=== PATIENT | male | born 1970 | race Caucasian/White ===

== ENCOUNTER 2018-03-06 18:13 | Emergency (ER) | payer OTHER ==
[~2018-03-06] VITALS: Ht 177.8 cm; Wt 217.7 kg
--- NOTE | ~2018-03-06 | EKG ---
[place] [address] [facility] [place] [address] ELECTROCARDIOGRAM REPORT Name: NATALI HERNANDEZ Room #: DEP Rahul#: [id number] Admission: 03/06/18 Attend Phys: Discharge: 03/06/18 Date of : 66 Report #: [id number] THIS REPORT FOR: //name// [facility] ED Test Date: 2018-03-06 Test Time: 18:20:47 Pat Name: NATALI HERNANDEZ Department: Room: Gender: District Plant Engineer: CIRILO : 1970 Requested By: Ángel Allison Order Number: [id number] MD: Cortez Infante Measurements Intervals [place] Rate: 85 P: 45 [place]: 156 QRS: -8 QRSD: 95 T: 67 QT: 393 QTc: 468 Interpretive Statements Sinus rhythm Abnormal R-wave progression, early transition No previous ECG available for comparison Electronically Signed On 03-07-2018 11:05:12 CDT by Cortez Infante [email or web address] <ELECTRONICALLY SIGNED> By: Cortez Infante MD 03/07/18 1105 1820 1820 Cortez Infante MD /EPI
[2018-03-06] MEDS ORDERED: COZAAR 25 MG TA25 M1 PO (18:28)
[2018-03-06] MEDS ORDERED: ASPIR 8181 MG PO (18:29)
[2018-03-06] MEDS ORDERED: LEXAPRO20 MG PO (18:29)
[2018-03-06] MEDS ORDERED: LIPITOR 20 MG T20 M1 PO (18:29)
[2018-03-06] MEDS ORDERED: UNICOMPLEX M TA1 TA1 PO (18:29)
[2018-03-06 18:34] LABS: ABSOLUTE NEUTROPHILS 6.2 thou/uL (1.4-8.2); BASOPHILS 1.4 % (0.0-2.0); EOSINOPHILS 2.4 % (0.0-3.0); HEMOGLOBIN 11.2 gm/dL (14.0-18.0); LYMPHOCYTES 16.8 % (24.0-44.0); MCV 77.9 fL (80.0-100.0); PLATELET COUNT 353 thou/uL (150-400); POLYS 71.4 % (36.0-66.0); RBC 4.49 mil/uL (4.50-6.00); RDW 17.4 % (10.5-14.5); WBC 8.7 thou/uL (4.0-11.0)
[2018-03-06 18:45] LABS: ANION GAP 11 mmol/L (7-16); BUN 21 mg/dL (7-18); CALCIUM 9.3 mg/dL (8.5-10.1); CHLORIDE 103 mmol/L (98-107); CO2 26 mmol/L (21-32); CREATININE 1.2 mg/dL (0.7-1.3); GLUCOSE 93 mg/dL (74-106); POTASSIUM 4.3 mmol/L (3.5-5.1); SODIUM 140 mmol/L (136-145)
[2018-03-06 18:54] LABS: TROPONIN-I <0.06 ng/mL (<0.06)
== END 2018-03-06 20:50 | disposition home or self-care (01) ==
LOC: ER 18:13
PROVIDERS: Emergency Medicine
DX: R07.9 Chest pain, unspecified (principal); I10 Essential (primary) hypertension; E78.5 Hyperlipidemia, unspecified; E11.9 Type 2 diabetes mellitus without complications; K21.9 Gastro-esophageal reflux disease without esophagitis; Z82.49 Family history of ischemic heart disease and other diseases of the circulatory system; Z88.8 Allergy status to other drugs, medicaments and biological substances

== ENCOUNTER 2020-04-04 01:57 | Emergency (ER) | payer MEDICARE, OTHER ==
[~2020-04-04] VITALS: Ht 177.8 cm; Wt 217.7 kg
[~2020-04-04 01:57] MED LIST: ASPIR 8181 MG PO; COZAAR 25 MG TA25 M1 PO; ELIQUIS5 MG PO; FAMOTIDINE 20 M20 MG PO; FOLIC ACID1 MG PO; FUROSEMIDE 20 M20 MG PO; ISORDIL10 MG PO; JANTOVEN7.5 MG PO; LEXAPRO20 MG PO; LIPITOR 20 MG T20 M1 PO; LOPRESSOR50 MG PO; PRINIVIL20 M1 PO; PRINIVIL20 MG PO; SEROQUEL 100 M100 M1 PO; SEROQUEL400 MG PO; TOPAMAX 25 MG T25 M1 PO; TORSEMIDE100 MG PO; UNICOMPLEX M TA1 TA1 PO; WELLBUTRIN XL300 MG PO
[2020-04-04] MEDS ORDERED: PROTONIX40 M4 PO (02:06)
[2020-04-04] MEDS ORDERED: LEXAPRO20 MG PO (02:07)
[2020-04-04] MEDS ORDERED: BRINTELLIX10 MG PO (02:07)
[2020-04-04] MEDS ORDERED: METFORMIN HCL500 M3 PO (02:07)
[2020-04-04] MEDS ORDERED: ENOXAPARIN60 MG/0.1 SUBQ (02:08)
[2020-04-04] MEDS ORDERED: ENOXAPARIN150 MG/1 M SUBQ (02:08)
[2020-04-04] MEDS ORDERED: SLOW FE142 MG PO (02:08)
[2020-04-04 02:46] LABS: BASOPHILS 1.2 % (0.0-2.0); EOSINOPHILS 3.8 % (0.0-3.0); HEMATOCRIT 33.1 % (42.0-52.0); HEMOGLOBIN 10.1 gm/dL (14.0-18.0); LYMPHOCYTES 19.4 % (24.0-44.0); MCHC 30.4 g/dL (28.0-37.0); MONOCYTES 9.5 % (1.0-8.0); PLATELET COUNT 312 thou/uL (150-400); POLYS 66.1 % (36.0-66.0); RBC 4.19 mil/uL (4.50-6.00); WBC 7.6 thou/uL (4.0-11.0)
[2020-04-04 02:47] LABS: CALCIUM 8.4 mg/dL (8.5-10.1); CREATININE 1.3 mg/dL (0.7-1.3); POTASSIUM 4.2 mmol/L (3.5-5.1)
[2020-04-04 02:54] LABS: ALBUMIN 3.1 g/dL (3.4-5.0); TOTAL BILIRUBIN 0.2 mg/dL (0.2-1.0); TOTAL PROTEIN 7.8 g/dL (6.4-8.2)
[2020-04-04 02:56] LABS: URINE BILIRUBIN NEGATIVE (Negative); URINE BLOOD NEGATIVE (Negative); URINE CLARITY CLEAR; URINE COLOR YELLOW; URINE GLUCOSE-RANDOM* NEGATIVE (Negative); URINE KETONES NEGATIVE (Negative); URINE LEUKOCYTES-REFLEX NEGATIVE (Negative); URINE NITRITE-REFLEX NEGATIVE (Negative); URINE PROTEIN (DIPSTICK) NEGATIVE (Negative); URINE UROBILINOGEN 0.2 E.U./dl (0.2-1.0)
[2020-04-04 04:06] LABS: INR 1.2
[2020-04-04 04:18] VITALS: BP 122/57
== END 2020-04-04 04:26 | disposition home or self-care (01) ==
LOC: ER 01:57
PROVIDERS: Emergency Medicine
DX: R10.32 Left lower quadrant pain (principal); R11.0 Nausea; E78.5 Hyperlipidemia, unspecified; E11.9 Type 2 diabetes mellitus without complications; K21.9 Gastro-esophageal reflux disease without esophagitis; I11.0 Hypertensive heart disease with heart failure; I50.9 Heart failure, unspecified; Z79.82 Long term (current) use of aspirin; Z79.01 Long term (current) use of anticoagulants; Z79.899 Other long term (current) drug therapy; Z88.8 Allergy status to other drugs, medicaments and biological substances

== ENCOUNTER 2020-05-31 00:42 | Observation (INO) | payer MEDICARE, OTHER ==
[~2020-05-31] VITALS: Ht 177.8 cm; Wt 224.1 kg
[2020-05-31] VITALS (9 sets, daily range): BP systolic 106–144; BP diastolic 44–73
[~2020-05-31 00:42] MED LIST changes: +BRINTELLIX10 MG PO; +ENOXAPARIN150 MG/1 M SUBQ; +ENOXAPARIN60 MG/0.1 SUBQ; +METFORMIN HCL500 M3 PO; +PROTONIX40 M4 PO; +PROTONIX40 MG PO; +SLOW FE142 MG PO
[2020-05-31 01:20] LABS: ABSOLUTE NEUTROPHILS 5.3 thou/uL (1.4-8.2); BASOPHILS 0.2 % (0.0-2.0); HEMATOCRIT 32.6 % (42.0-52.0); HEMOGLOBIN 9.9 gm/dL (14.0-18.0); LYMPHOCYTES 20.5 % (24.0-44.0); MCH 23.1 pg (26.0-34.0); MCHC 30.4 g/dL (28.0-37.0); PLATELET COUNT 377 thou/uL (150-400); POLYS 69.3 % (36.0-66.0); RBC 4.29 mil/uL (4.50-6.00); RDW 19.1 % (10.5-14.5); WBC 7.7 thou/uL (4.0-11.0)
[2020-05-31 01:22] LABS: ANION GAP 13 mmol/L (7-16); BUN 14 mg/dL (7-18); CALCIUM 8.9 mg/dL (8.5-10.1); CHLORIDE 100 mmol/L (98-107); CO2 23 mmol/L (21-32); CREATININE 1.4 mg/dL (0.7-1.3); GLUCOSE 120 mg/dL (74-106); POTASSIUM 4.1 mmol/L (3.5-5.1); SODIUM 136 mmol/L (136-145)
[2020-05-31 01:25] LABS: APTT 39.8 Seconds (24.5-32.8); INR 1.2; PROTIME 12.5 Seconds (9.3-11.4)
[2020-05-31 01:33] LABS: ALBUMIN 3.2 g/dL (3.4-5.0); DIRECT BILIRUBIN < 0.1 mg/dL (<0.1-0.2); LIPASE 92 U/L (73-393); MAGNESIUM 1.9 mg/dL (1.8-2.4); SGOT 17 U/L (15-37); SGPT 25 U/L (30-65); TOTAL BILIRUBIN 0.2 mg/dL (0.2-1.0); TOTAL PROTEIN 7.8 g/dL (6.4-8.2); TROPONIN-I <0.06 ng/mL (<0.06)
[2020-05-31 03:22] LABS: CHOLESTEROL 151 mg/dL (<200); HDL CHOLESTEROL 31 mg/dL (>40); LDL CHOLESTEROL 95 mg/dL (<100); SERUM ASSESSMENT Clear; TC:HDL 4.9 Ratio (Not establshd); TRIGLYCERIDE 127 mg/dL (<150); VLDL 25 mg/dL (<40)
--- NOTE | 2020-05-31 05:23 | NUR ---
PATIENT IS A NEW ADMISSION TO THE UNIT THIS SHIFT. HE ARRIVED VIA WHEELCHAIR AND WAS ABLE TO AMBULATE TO THE BED WITHOUT INCIDENT. PATIENT IS FULLY ALERT AND ORIENTED AND ABLE TO PARTICIPATE IN ADMISSION. NURSE TO COMPLETE ADMISSION AND INITIATE PLAN OF CARE.
--- NOTE | 2020-05-31 07:19 | EKG ---
[address] [place] [address] ELECTROCARDIOGRAM REPORT Name: NATALI HERNANDEZ V Room #: 209-P ADM IN M.R.#: [id number] Admission: 05/31/20 Attend Phys: Philomena Bhakta MD Discharge: Date of : 66 Report #: [id number] [facility] Test Date: 2020-05-31 Test Time: 06:36:30 Pat Name: NATALI HERNANDEZ Department: Room: 209 Gender: M Maxillofacial Surgeon: STACY PAINTING : 1970 Requested By: Isaias Scott Order Number: [id number] MD: Ahmet Tovar Measurements Intervals [place] Rate: 60 P: 63 [place]: 171 QRS: -5 QRSD: 102 T: 52 QT: 431 QTc: 431 Interpretive Statements Sinus rhythm Abnormal R-wave progression, early transition Compared to ECG 03/06/2018 18:20:47 No significant changes Electronically Signed On 05-31-2020 7:19:16 MILKER MACHINE by Ahmet Tovar [email or web address] <ELECTRONICALLY SIGNED> By: Ahmet Tovar MD, [facility] 05/31/20 0719 0636 0636 Ahmet Tovar MD, FACC /EPI
--- NOTE | 2020-05-31 07:45 | NUR ---
PATIENT DID COMPLAIN OF CHEST PAIN THIS MORNING. STAT EKG OBTAINED WITH SINUS RHYTHM NOTED. PATIENT WAS GIVEN NITRO TO GOOD AFFECT. FULL REPORT GIVEN TO ONCOMING NURSE.
[2020-05-31] MEDS ORDERED: LOVENOX150 MG/1 M SUBQ (07:48)
[2020-05-31] MEDS ORDERED: FUROSEMIDE 20 M20 MG PO (07:49)
--- NOTE | 2020-05-31 10:29 | 2DMMODE ---
[facility] [place] [address] 2 D/M-MODE ECHOCARDIOGRAM Name: NATALI HERNANDEZ V Room #: 209-P ADM IN M.R.#: [id number] Admission: 05/31/20 Attend Phys: Hammad Lindsay MD Discharge: Date of : 66 Report #: [id number] THIS REPORT FOR: cc: NO FAMILY PHYSICIAN or PCP NO FAMILY PHYSICIAN or PCP Ahmet Tovar MD [facility] ~ APPROVED REPORT Study performed: 05/31/2020 08:46:02 EXAM: Comprehensive 2D, Doppler, and color-flow Echocardiogram Patient Location: In-Patient Room #: 209 BSA: 3.06 HR: 88 bpm BP: 151/73 mmHg Other Information Study Quality: Adequate Risk Factors: Cardiac Risk Factors: Smoking, HTN, Hyperlipidemia Indications Hypertension/HDD 2D Dimensions IVSd: 17.09 (7-11mm) LVDd: 48.09 mm PWd: 10.70 (7-11mm) Ascending Ao: 31.78 (22-36mm) LVDs: 30.08 (25-40mm) Left Atrium: 44.99 (27-40mm) Aortic Root: 29.59 mm Biplane EF: 65.0 % Volumes Left Atrial Volume (Systole) Single Plane 4CH: 36.66 mL Single Plane 2CH: 38.93 mL Aortic Valve AoV Peak Joseph.: 1.73 m/s AO Peak Gr.: 12.04 mmHg LVOT Max P.61 mmHg [facility] [address] [place] [address] 2 D/M-MODE ECHOCARDIOGRAM Name: NATALI HERNANDEZ V Room #: 209-P [facility] IN .R.#: [id number] Admission: 05/31/20 Attend Phys: Hammad Lindsay MD Discharge: Date of : 66 Report #: [id number] LVOT Max V: 1.18 m/s Mitral Valve E/A Ratio: 0.9 MV Decel. Time: 1552.86 ms MV E Max Joseph.: 0.38 m/s MV A Joseph.: 0.40 m/s MV PHT: 450.33 ms IVRT: 83.04 ms Pulmonary Valve PV Peak Joseph.: 1.28 m/s PV Peak Gr.: 6.56 mmHg Pulmonary Vein P Vein S: 0.67 m/s P Vein A: 0.31 m/s P Vein D: 0.40 m/s P Vein A Dur.: 96.9 msec P Vein S/D Ratio: 1.67 Tricuspid Valve TR Peak Joseph.: 2.00 m/s RAP Estimate: 5.00 mmHg TR Peak Gr.: 15.98 mmHg RVSP: 21.00 mmHg Left Ventricle The left ventricle is normal size. Borderline concentric left ventricular hypertrophy. The left ventricular systolic function is normal. The left ventricular ejection fraction is within the normal range. LVEF is 65-70%. Right Ventricle The right ventricle is normal size. The right ventricular systolic function is normal. Atria The left atrium size is normal. The right atrium size is normal. Aortic Valve The aortic valve is normal in structure. No aortic regurgitation is present. There is no aortic valvular stenosis. Mitral Valve The mitral valve is normal in structure. Trace to mild mitral regurgitation. No evidence of mitral valve stenosis. Tricuspid Valve The tricuspid valve is normal in structure. Trace tricuspid [facility] [employer] [address] 2 D/M-MODE ECHOCARDIOGRAM Name: MARYNATALI Danelle Room #: 209-P [facility] IN .R.#: [id number] Admission: 05/31/20 Attend Phys: Hammad Lindsay MD Discharge: Date of : 66 Report #: [id number] regurgitation. Pulmonic Valve Pulmonic valve is not well visualized. There is no pulmonic valvular regurgitation. Great Vessels The aortic root is normal in size. IVC is normal in size and collapses >50% with inspiration. Pericardium There is no pericardial effusion. <Conclusion> Normal left ventricular size with borderline concentric hypertrophy Ejection fraction 60-65% Normal right ventricular size/function Normal atrial size Color-flow Doppler study was performed of the aortic/mitral/tricuspid/pulmonary valve Mild mitral valve insufficiency Trace tricuspid valve insufficiency, unable to assess PA systolic pressures No pericardial effusion <ELECTRONICALLY SIGNED> By: Ahmet Tovar MD, FACC 05/31/20 1029 1029 1029 Ahmet Tovar MD, [facility] /INF
[2020-06-01 02:06] LABS: GLYCOHEMOGLOBIN (HGB A1C) 6.1 % (4.8-5.6)
[2020-06-01 04:00] VITALS: BP 128/65
[2020-06-01 04:52] LABS: HEMATOCRIT 33.8 % (42.0-52.0); HEMOGLOBIN 10.2 gm/dL (14.0-18.0); MCH 23.2 pg (26.0-34.0); MCHC 30.2 g/dL (28.0-37.0); MCV 76.8 fL (80.0-100.0); RBC 4.41 mil/uL (4.50-6.00); RDW 19.4 % (10.5-14.5); WBC 7.1 thou/uL (4.0-11.0)
[2020-06-01 05:10] LABS: INR 1.2; PROTIME 12.7 Seconds (9.3-11.4)
[2020-06-01 05:14] LABS: ANION GAP 7 mmol/L (7-16); BUN 18 mg/dL (7-18); CALCIUM 9.5 mg/dL (8.5-10.1); CHLORIDE 101 mmol/L (98-107); CO2 28 mmol/L (21-32); CREATININE 1.3 mg/dL (0.7-1.3); GLUCOSE 80 mg/dL (74-106); POTASSIUM 4.4 mmol/L (3.5-5.1); SODIUM 136 mmol/L (136-145); TROPONIN-I <0.06 ng/mL (<0.06)
[2020-06-01 07:14] VITALS: BP 125/70
--- NOTE | 2020-06-01 07:15 | EKG ---
[address] [address] ELECTROCARDIOGRAM REPORT Name: NATALI HERNANDEZ V Room #: 209-P ADM IN M.R.#: [id number] Admission: 05/31/20 Attend Phys: Hammad Lindsay MD Discharge: Date of : 66 Report #: [id number] [facility] ED Test Date: 2020-05-31 Test Time: 00:54:34 Pat Name: NATALI HERNANDEZ Department: Room: 209 P Gender: M Vp Of Technology: [place] : 1970 Requested By: Hammad Lindsay Order Number: [id number] : Ahmet Tovar Measurements Intervals [place] Rate: 76 P: [place]: QRS: -9 QRSD: 90 T: 38 QT: 402 QTc: 453 Interpretive Statements NSR Compared to ECG 03/06/2018 18:20:47 No significant change Electronically Signed On 06-01-2020 7:15:12 DIRECTOR SALES by Ahmet Tovar [email or web address] <ELECTRONICALLY SIGNED> By: Ahmet Tovar MD, [facility] 06/01/20 0715 0054 0054 Ahmet Tovar MD, FACC /EPI
[2020-06-01] MEDS ORDERED: METOPROLOL SUCC50 MG PO (09:39)
[2020-06-01 11:20] VITALS: BP 116/63
[2020-06-01 12:12] VITALS: BP 116/63
--- NOTE | 2020-06-01 12:13 | NUR ---
Pt here observation due to chest pain. DC home today with outpt f/u. Studio Technician Video Operator visited with the pt at bedside. He is a&ox4 and indicates he lives in an apt with family. No steps. He has a st cane for balance. He is considering f/u for barriatric surgery consult d/t >600lbs. Pt seen and cleared by therapy. Pt notes depression about his condition. Mental health/counseling options discussed. Pt to address with his pcp. He has been provided a cab ride (voucher) to facilitate dc home today. He has his keys and feels safe getting in and out of cab and into his apt. No cm interventions indicated.
[2020-06-01 14:33] VITALS: BP 131/73
[2020-06-01 15:32] VITALS: BP 116/63
--- NOTE | 2020-06-01 17:13 | NUR ---
ASSUMED CARE OF PT AT SHIFT CHANGE. ASSESSMENTS CHARTED. MEDS GIVEN PER JUL. PT A&OX4, C/O PAIN NOT TREATED D/T DR. GUTIERREZ, PT EXPRESSED UNDERSTANDING. DISCHARGE ORDERS AND INSTRUCTIONS COMPLETE. IV AND TELE DC'D. THIS NURSE TRANSPORTED PT WITH CAB VOUCHER VIA WHEELCHAIR TO ER ENTRANCE.
== END 2020-06-01 16:36 | disposition home or self-care (01) ==
LOC: ER 00:42 → 2N 02:19 → EROBS 02:19 → 2N 03:58
PROVIDERS: Emergency Medicine; Nurse Practitioner Family; ADMIT Hospitalist; ATTEND Hospitalist
DX: R07.2 Precordial pain (principal); I50.30 Unspecified diastolic (congestive) heart failure; E78.5 Hyperlipidemia, unspecified; E11.9 Type 2 diabetes mellitus without complications; K21.9 Gastro-esophageal reflux disease without esophagitis; F41.9 Anxiety disorder, unspecified; I74.8 Embolism and thrombosis of other arteries; F32.9 Major depressive disorder, single episode, unspecified; E66.01 Morbid (severe) obesity due to excess calories; D64.9 Anemia, unspecified; I11.0 Hypertensive heart disease with heart failure; Z86.711 Personal history of pulmonary embolism; Z79.01 Long term (current) use of anticoagulants; Z87.891 Personal history of nicotine dependence
CPT/HCPCS: 10081

== ENCOUNTER 2020-06-12 04:22 | Observation (INO) | payer MEDICARE, OTHER ==
[~2020-06-12] VITALS: Ht 177.8 cm; Wt 217.7 kg
[~2020-06-12 04:22] MED LIST changes: +LOVENOX150 MG/1 M SUBQ; +METOPROLOL SUCC50 MG PO
[2020-06-12 04:24] VITALS: BP 176/72
[2020-06-12 04:53] LABS: EOSINOPHILS 0.7 % (0.0-3.0); HEMATOCRIT 35.6 % (42.0-52.0); LYMPHOCYTES 18.2 % (24.0-44.0); MCH 23.5 pg (26.0-34.0); MCHC 30.8 g/dL (28.0-37.0); MCV 76.1 fL (80.0-100.0); MONOCYTES 6.8 % (1.0-8.0); PLATELET COUNT 405 thou/uL (150-400); POLYS 73.3 % (36.0-66.0); RBC 4.67 mil/uL (4.50-6.00); RDW 20.4 % (10.5-14.5); WBC 8.2 thou/uL (4.0-11.0)
[2020-06-12 04:57] LABS: ANION GAP 13 mmol/L (7-16); BUN 28 mg/dL (7-18); CALCIUM 8.6 mg/dL (8.5-10.1); CHLORIDE 101 mmol/L (98-107); CO2 23 mmol/L (21-32); CREATININE 1.4 mg/dL (0.7-1.3); GLUCOSE 102 mg/dL (74-106); POTASSIUM 3.9 mmol/L (3.5-5.1); SODIUM 137 mmol/L (136-145)
[2020-06-12 05:05] LABS: TROPONIN-I <0.06 ng/mL (<0.06)
[2020-06-12 05:10] LABS: D-DIMER 0.23 ug/mLFEU (0.19-0.50); INR 1.4
[2020-06-12 08:00] VITALS: BP 152/86
[2020-06-12] MEDS ORDERED: LIPITOR 20 MG T20 M1 PO ×2 (08:09→12:03)
[2020-06-12] MEDS ORDERED: METOPROLOL SUCC50 MG PO ×2 (08:09→12:03)
[2020-06-12] MEDS ORDERED: LOVENOX150 MG/1 M SUBQ ×2 (08:09→12:03)
[2020-06-12] MEDS ORDERED: ISORDIL10 MG PO ×2 (08:09→12:03)
[2020-06-12] MEDS ORDERED: FUROSEMIDE 20 M20 MG PO ×2 (08:09→12:03)
[2020-06-12] MEDS ORDERED: JANTOVEN7.5 MG PO ×2 (08:09→12:03)
[2020-06-12 12:00] VITALS: BP 162/85
[2020-06-12] MEDS ORDERED: TOPAMAX 25 MG T25 M1 PO (12:03)
[2020-06-12] MEDS ORDERED: SEROQUEL400 MG PO (12:03)
[2020-06-12] MEDS ORDERED: WELLBUTRIN XL300 MG PO (12:03)
--- NOTE | 2020-06-12 16:05 | EKG ---
[place] [address] [facility] [place] [address] ELECTROCARDIOGRAM REPORT Name: NATALI HERNANDEZ V Room #: 170-9 [facility]..#: [id number] Admission: 06/12/20 Attend Phys: Cassnadra Costa MD Discharge: Date of : 66 Report #: [id number] [facility] ED Test Date: 2020-06-12 Test Time: 04:26:58 Pat Name: NATALI HERNANDEZ Department: Room: 170 Gender: M Ambulatory Services Representative: JCHAIHUDSON : 1970 Requested By: Roma Langston Order Number: [id number] MD: Santy Dawson Measurements Intervals [place] Rate: 92 P: 49 [place]: 159 QRS: -6 QRSD: 101 T: 52 QT: 364 QTc: 451 Interpretive Statements Sinus rhythm Early R wave progression Compared to ECG 05/31/2020 06:36:30 No significant change was found Electronically Signed On 06-12-2020 16:05:24 LINE CONSTRUCTION SUPERVISOR by Santy Dawson [email or web address] <ELECTRONICALLY SIGNED> By: Santy Dawson MD, [facility] 06/12/20 1605 0426 0426 Santy Dawson MD, FACC /EPI
[2020-06-12] MEDS ORDERED: GLYBURIDE 2.52.5 M1 PO (17:11)
[2020-06-12 17:23] VITALS: BP 162/85
[2020-06-12 17:30] VITALS: BP 154/89
== END 2020-06-12 18:30 | disposition home or self-care (01) ==
LOC: ER 04:22 → EROBS 05:47
PROVIDERS: Emergency Medicine; Nurse Practitioner; ADMIT Internal Medicine; ATTEND Internal Medicine
DX: R07.89 Other chest pain (principal); I11.0 Hypertensive heart disease with heart failure; I50.9 Heart failure, unspecified; E11.9 Type 2 diabetes mellitus without complications; D63.8 Anemia in other chronic diseases classified elsewhere; E78.5 Hyperlipidemia, unspecified; E66.01 Morbid (severe) obesity due to excess calories; F41.9 Anxiety disorder, unspecified; F32.9 Major depressive disorder, single episode, unspecified; K21.9 Gastro-esophageal reflux disease without esophagitis; Z79.82 Long term (current) use of aspirin; Z87.891 Personal history of nicotine dependence

== ENCOUNTER 2020-06-20 15:35 | Emergency (ER) | payer MEDICARE, OTHER ==
[~2020-06-20] VITALS: Ht 170.2 cm; Wt 221.8 kg
[~2020-06-20 15:35] MED LIST changes: +GLYBURIDE 2.52.5 M1 PO
[2020-06-20 16:05] LABS: ABSOLUTE NEUTROPHILS 5.5 thou/uL (1.4-8.2); BASOPHILS 0.9 % (0.0-2.0); EOSINOPHILS 2.3 % (0.0-3.0); HEMATOCRIT 34.1 % (42.0-52.0); HEMOGLOBIN 10.1 gm/dL (14.0-18.0); LYMPHOCYTES 14.1 % (24.0-44.0); MCH 22.4 pg (26.0-34.0); MCHC 29.5 g/dL (28.0-37.0); MONOCYTES 7.4 % (1.0-8.0); PLATELET COUNT 338 thou/uL (150-400); POLYS 75.3 % (36.0-66.0); RBC 4.49 mil/uL (4.50-6.00); RDW 20.5 % (10.5-14.5); WBC 7.3 thou/uL (4.0-11.0)
[2020-06-20 16:10] LABS: ANION GAP 12 mmol/L (7-16); BUN 13 mg/dL (7-18); CALCIUM 8.7 mg/dL (8.5-10.1); CHLORIDE 102 mmol/L (98-107); CO2 23 mmol/L (21-32); CREATININE 1.5 mg/dL (0.7-1.3); GLUCOSE 153 mg/dL (74-106); POTASSIUM 4.3 mmol/L (3.5-5.1); SODIUM 137 mmol/L (136-145)
[2020-06-20 16:20] LABS: ALBUMIN 3.4 g/dL (3.4-5.0); LIPASE 80 U/L (73-393); SGOT 25 U/L (15-37); SGPT 37 U/L (30-65); TOTAL BILIRUBIN 0.2 mg/dL (0.2-1.0); TOTAL PROTEIN 7.7 g/dL (6.4-8.2); TROPONIN-I <0.06 ng/mL (<0.06)
[2020-06-20 16:24] LABS: INR 1.9; PROTIME 19.9 Seconds (9.3-11.4)
[2020-06-20 19:23] VITALS: BP 131/60
[2020-06-20 20:03] LABS: ANISOCYTOSIS 2+; HYPOCHROMASIA 2+; POLYCHROMASIA 1+
--- NOTE | 2020-06-21 07:05 | EKG ---
[facility] [place] [address] ELECTROCARDIOGRAM REPORT Name: NATALI HERNANDEZ V [facility] [place] [id number] Admission: 06/20/20 Attend Phys: Discharge: 06/20/20 Date of : 66 Report #: [id number] [facility] ED Test Date: 2020-06-20 Test Time: 15:44:05 Pat Name: NATALI HERNANDEZ Department: Room: Gender: M Rounding Machine Operator: karon : 1970 Requested By: Marvin Calloway Order Number: [id number] MD: Ahmet Tovar Measurements Intervals [place] Rate: 65 P: 43 [place]: 166 QRS: -6 QRSD: 102 T: 39 QT: 381 QTc: 397 Interpretive Statements Sinus rhythm Low voltage, precordial leads Compared to ECG 06/12/2020 04:26:58 Low QRS voltage now present Poor R-wave progression no longer present Electronically Signed On 06-21-2020 7:04:51 FIBERGLASS ROLLER by Ahmet Tovar [email or web address] <ELECTRONICALLY SIGNED> By: Ahmet Tovar MD, [facility] 06/21/20 0704 1544 1544 Ahmet Tovar MD, FACC /EPI
--- NOTE | 2020-06-21 07:05 | EKG ---
[place] [address] [place] [address] ELECTROCARDIOGRAM REPORT Name: NATALI HERNANDEZ V Room #: [facility]#: [id number] Admission: 06/20/20 Attend Phys: Discharge: 06/20/20 Date of : 66 Report #: [id number] [facility] ED Test Date: 2020-06-20 Test Time: 17:29:37 Pat Name: NATALI HERNANDEZ Department: Room: Gender: M Advertising Sales Manager: ANA : 1970 Requested By: Marvin Calloway Order Number: [id number] MD: Ahmet Tovar Measurements Intervals [place] Rate: 76 P: 55 [place]: 170 QRS: -16 QRSD: 112 T: 32 QT: 388 QTc: 437 Interpretive Statements Sinus rhythm Borderline intraventricular conduction delay Low voltage, precordial leads Baseline wander in lead(s) V1 Compared to ECG 06/20/2020 15:44:05 No significant changes Electronically Signed On 06-21-2020 7:04:53 FOOD CHECKERS AND CASHIERS SUPERVISOR by Ahmet Tovar [email or web address] <ELECTRONICALLY SIGNED> By: Ahmet Tovar MD, [facility] 06/21/20 0704 D: [id number] 28 Ahmet Tovar MD, FACC /EPI
== END 2020-06-20 19:23 | disposition home or self-care (01) ==
LOC: ER 15:35
PROVIDERS: Emergency Medicine
DX: R07.89 Other chest pain (principal); E11.9 Type 2 diabetes mellitus without complications; E78.5 Hyperlipidemia, unspecified; K21.9 Gastro-esophageal reflux disease without esophagitis; I11.0 Hypertensive heart disease with heart failure; I50.9 Heart failure, unspecified; Z87.891 Personal history of nicotine dependence; Z86.2 Personal history of diseases of the blood and blood-forming organs and certain disorders involving the immune mechanism; Z79.02 Long term (current) use of antithrombotics/antiplatelets; Z79.899 Other long term (current) drug therapy; Z88.8 Allergy status to other drugs, medicaments and biological substances

== ENCOUNTER 2020-08-28 22:38 | Emergency (ER) | payer MEDICARE, OTHER ==
[~2020-08-28] VITALS: Ht 177.8 cm; Wt 217.7 kg
[2020-08-28 23:04] LABS: ABSOLUTE NEUTROPHILS 5.3 thou/uL (1.4-8.2); BASOPHILS 1.2 % (0.0-2.0); EOSINOPHILS 4.1 % (0.0-3.0); HEMATOCRIT 34.5 % (42.0-52.0); HEMOGLOBIN 10.9 gm/dL (14.0-18.0); LYMPHOCYTES 16.9 % (24.0-44.0); MCHC 31.7 g/dL (28.0-37.0); MCV 75.8 fL (80.0-100.0); MONOCYTES 7.2 % (1.0-8.0); PLATELET COUNT 323 thou/uL (150-400); POLYS 70.6 % (36.0-66.0); RBC 4.56 mil/uL (4.50-6.00); RDW 21.2 % (10.5-14.5); WBC 7.4 thou/uL (4.0-11.0)
[2020-08-28 23:18] LABS: ANION GAP 11 mmol/L (7-16); BUN 17 mg/dL (7-18); CALCIUM 8.6 mg/dL (8.5-10.1); CHLORIDE 105 mmol/L (98-107); CO2 24 mmol/L (21-32); CREATININE 1.4 mg/dL (0.7-1.3); GLUCOSE 104 mg/dL (74-106); POTASSIUM 4.2 mmol/L (3.5-5.1); SODIUM 140 mmol/L (136-145)
[2020-08-28 23:32] LABS: SGOT 24 U/L (15-37); SGPT 35 U/L (16-63); TOTAL BILIRUBIN 0.3 mg/dL (0.2-1.0); TOTAL PROTEIN 7.7 g/dL (6.4-8.2); TROPONIN-I <0.06 ng/mL (<0.06)
[2020-08-29 01:23] VITALS: BP 127/55
--- NOTE | 2020-08-29 16:01 | EKG ---
[place] [address] [employer] [place] [address] ELECTROCARDIOGRAM REPORT Name: NATALI HERNANDEZ V [id number] Admission: 08/28/20 Attend Phys: Discharge: 08/29/20 Date of : 66 Report #: [id number] [facility] ED Test Date: 2020-08-28 Test Time: 22:48:25 Pat Name: NATALI HERNANDEZ Department: Room: Gender: M Diversified Crops Farmworker: donta santa : 1970 Requested By: Kathya Diez Order Number: [id number] MD: Santy Dawson Measurements Intervals [place] Rate: 59 P: 41 [place]: 164 QRS: -7 QRSD: 102 T: 35 QT: 412 QTc: 409 Interpretive Statements Sinus bradycardia Otherwise normal tracing Compared to ECG 06/20/2020 17:29:37 No significant changes Electronically Signed On 08-29-2020 16:01:47 CDT by Santy Dawson [email or web address] <ELECTRONICALLY SIGNED> By: Santy Dawson MD, [facility] 08/29/20 1601 2248 2248 Santy Dawson MD, FACC /EPI
== END 2020-08-29 04:35 | disposition home or self-care (01) ==
LOC: ER 22:38
PROVIDERS: Emergency Medicine
DX: R07.9 Chest pain, unspecified (principal); I11.0 Hypertensive heart disease with heart failure; I50.9 Heart failure, unspecified; K21.9 Gastro-esophageal reflux disease without esophagitis; E11.9 Type 2 diabetes mellitus without complications; E78.5 Hyperlipidemia, unspecified; Z86.2 Personal history of diseases of the blood and blood-forming organs and certain disorders involving the immune mechanism; Z79.82 Long term (current) use of aspirin; Z79.899 Other long term (current) drug therapy; Z87.891 Personal history of nicotine dependence; Z88.8 Allergy status to other drugs, medicaments and biological substances

== ENCOUNTER 2020-09-02 19:20 | Emergency (ER) | payer OTHER ==
[~2020-09-02] VITALS: Ht 177.8 cm; Wt 233.6 kg
--- NOTE | ~2020-09-02 | EMS ---
[address] [address] EMS Patient Care Report Name: NATALI HERNANDEZ V Room #: REG [place] Kay#: [id number] Admission: 09/02/20 Attend Phys: Discharge: Date of : 66 Report #: [id number] THIS REPORT FOR: //name// Report Transmitted: 09/02/2020 21:04 EMS Care Summary [place], [place]/[facility] Incident [id number] @ 09/02/2020 18:47 Incident Location [address] Patient DEN HERNANDEZ Male, 49 Years 1970 Patient Address [address] [place] [address] Patient History Other,Congestive Heart Failure (CHF),Chronic Obstructive Pulmonary Disease (COPD),Hypertension (HTN),Hyperlipidemia,Gastro-Esophageal Reflux Disease (GERD),Morbid Obesity,Depression,Anxiety,Post Traumatic Stress Disorder (PTSD),Hernia (Abdominal),None Reported,Appendectomy, Patient Allergies Other drug allergy,Toradol, Patient Medications Metformin, Lexapro, None Reported, Seroquel, Furosemide, Wellbutrin, Atorvastatin, Warfarin, Topamax, Folic acid, Lovenox, Metoprolol, Isosorbide, Chief Complaint CHEST PAIN Disposition Transported No Lights/[place] Dispatch Reason Chest Pain (Non-Traumatic) Transported To [facility] Narrative M528 ARRIVES TO FIND 49 Y/O M PT COMPLAINING OF CHEST PAIN. [address] [address] EMS Patient Care Report Name: NATALI HERNANDEZ V Room #: REG [facility].#: [id number] Admission: 09/02/20 Attend Phys: Discharge: Date of : 66 Report #: [id number] ASSESSMENTS AND TREATMENTS NOTED. PT AMBULATORY AND WALKS TO COT. PT MOVED TO AMBULANCE. PT TRANSPORTED. M528 ARRIVES AT DESTINATION. PT MOVED TO ROOM IN ED. PT SLIDES FROM COT TO BED IN ROOM. PT CRAE TRANSFERRED. M528 RETURNS TO SERVICE. Initial Vitals @19:08P: 70,BP: 103/50,CO: 1,SpO2: 97, @18:59P: 71,R: 18,BP: 107/64,Pain: 10/10,GCS: 15,Glucose: 171,Revised Trauma: 12, Assessments @18:58MENTAL:No Abnormalities,SKIN:No Abnormalities,HEENT:Head/Face: No Abnormalities,Eyes: No Abnormalities,Neck/Airway: No Abnormalities,LUNG SOUNDS:General: No Abnormalities,Left Upper: No Abnormalities,Right Upper: No Abnormalities,Left Lower: No Abnormalities,Right Lower: No Abnormalities,ABDOMEN:General: No Abnormalities,Left Upper: No Abnormalities,Right Upper: No Abnormalities,Left Lower: No Abnormalities,Right Lower: No Abnormalities,PELVIS//GI:No Abnormalities,EXTREMITIES:Left Arm: No Abnormalities,Right Arm: No Abnormalities,Left Leg: No Abnormalities,Right Leg: No Abnormalities,PULSE:NEURO:No Abnormalities,@19:03MENTAL:No Abnormalities,SKIN:No Abnormalities,HEENT:Head/Face: No Abnormalities,Eyes: No Abnormalities,Neck/Airway: No Abnormalities,LUNG SOUNDS:General: No Abnormalities,Left Upper: No Abnormalities,Right Upper: No Abnormalities,Left Lower: No Abnormalities,Right Lower: No Abnormalities,ABDOMEN:General: No Abnormalities,Left Upper: No Abnormalities,Right Upper: No Abnormalities,Left Lower: No Abnormalities,Right Lower: No Abnormalities,PELVIS//GI:No Abnormalities,EXTREMITIES:Left Arm: No Abnormalities,Right Arm: No Abnormalities,Left Leg: No Abnormalities,Right Leg: No Abnormalities,PULSE:NEURO:No Abnormalities, Impression Chest Pain / Discomfort Procedures @19:0412-Lead ECGResponse: UnchangedSucceeded@18:58ALS AssessmentResponse: UnchangedSucceeded@19:03Saline Lock 0cc (18 ga) Site: Antecubital-LeftResponse: UnchangedSucceeded@19:00Aspirin - 324 Milligrams (mg) - OralResponse: Unchanged@PTANitrostat - 0.4 Milligrams (mg) - SublingualResponse: Unchanged@PTANitrostat - 0.4 Milligrams (mg) - SublingualResponse: Unchanged@PTANitrostat - 0.4 Milligrams (mg) - SublingualResponse: Unchanged Timeline CRM ANALYST,Nitrostat - 0.4 Milligrams (mg) - Sublingual,Response: Unchanged CRM ANALYST,Nitrostat - 0.4 Milligrams (mg) - Sublingual,Response: Unchanged CRM ANALYST,Nitrostat - 0.4 Milligrams (mg) - Sublingual,Response: Unchanged 18:44,Call Received [facility] [address] [place] [address] EMS Patient Care Report Name: NATALI HERNANDEZ V Room #: REG Rahul#: [id number] Admission: 09/02/20 Attend Phys: Discharge: Date of : 66 Report #: [id number] 18:44,Dispatch Notified 18:47,Dispatched 18:48,En Route 18:56,On Scene 18:57,At Patient 18:58,ALS Assessment,Response: UnchangedSucceeded, 18:59,BP: 107/64 M,PULSE: 71,RR: 18 R,SPO2: Ox,ETCO2: ,B,PAIN: 10,GCS: 15, 19:00,Aspirin - 324 Milligrams (mg) - Oral,Response: Unchanged 19:03,Saline Lock 0cc 18 ga Site: Antecubital-Left,Response: UnchangedSucceeded, 19:04,12-Lead ECG,Response: UnchangedSucceeded, 19:07,Depart Scene 19:08,BP: 103/50 M,PULSE: 70,RR: R,SPO2: 97 Ox,ETCO2: ,BG: ,PAIN: ,GCS: , 19:17,At Destination 19:31,Call Closed Disclaimer v1.1 Copyright 2020 [employer] This EMS Care Summary contains data elements from the applicable legal record (which may be displayed differently). It is designed to provide pertinent information for the following purposes: continuity of care, clinical quality, and state data reporting. The complete legal record is available to ED staff and administrators of the receiving hospital in [employer] Patient Tracker. All data is provided "as is."
[2020-09-02 20:58] LABS: ANION GAP 11 mmol/L (7-16); BUN 31 mg/dL (7-18); CALCIUM 8.5 mg/dL (8.5-10.1); CHLORIDE 107 mmol/L (98-107); CO2 21 mmol/L (21-32); CREATININE 1.6 mg/dL (0.7-1.3); GLUCOSE 148 mg/dL (74-106); POTASSIUM 4.1 mmol/L (3.5-5.1); SODIUM 139 mmol/L (136-145)
[2020-09-02 21:08] LABS: SGOT 10 U/L (15-37); SGPT 19 U/L (16-63); TOTAL BILIRUBIN 0.2 mg/dL (0.2-1.0); TOTAL PROTEIN 7.3 g/dL (6.4-8.2); TROPONIN-I <0.06 ng/mL (<0.06)
[2020-09-02 21:15] LABS: CORRECTED WBC 9.2 thou/uL (4.0-11.0); HEMATOCRIT 35.2 % (42.0-52.0); MCH 23.9 pg (26.0-34.0); MCHC 31.3 % (28.0-37.0); MCV 76.5 fL (80.0-100.0); PLATELET COUNT 312 thou/uL (150-400); RDW 21.2 % (10.5-14.5); WBC 9.2 thou/uL (4.0-11.0)
[2020-09-02 21:16] LABS: ABSOLUTE NEUTROPHILS 6.9 thou/uL (1.4-8.2); BASOPHILS 0.6 % (0.0-2.0); EOSINOPHILS 3.9 % (0.0-3.0); MONOCYTES 6.9 % (1.0-8.0); POLYS 75.6 % (36.0-66.0)
--- NOTE | 2020-09-04 07:05 | EKG ---
[facility] [place] [address] ELECTROCARDIOGRAM REPORT Name: NATALI HERNANDEZ V Room #: [facility] [place]Asuncion#: [id number] Admission: 09/02/20 Attend Phys: Discharge: 09/02/20 Date of : 66 Report #: [id number] [facility] ED Test Date: 2020-09-02 Test Time: 19:38:39 Pat Name: NATALI HERNANDEZ Department: Room: Gender: M Photographer Model: MARYANN : 1970 Requested By: Rekha Morgan Order Number: [id number] MD: Ahmet Tovar Measurements Intervals [place] Rate: 68 P: 39 SD: 164 QRS: -6 QRSD: 100 T: 54 QT: 419 QTc: 446 Interpretive Statements Sinus rhythm Abnormal R-wave progression, early transition Compared to ECG 08/28/2020 22:48:25 Sinus bradycardia no longer present Electronically Signed On 09-04-2020 7:05:39 CDT by Ahmet Tovar [email or web address] <ELECTRONICALLY SIGNED> By: Ahmet Tovar MD, [facility] 09/04/20 07 193 37 Ahmet Tovar MD, FACC /EPI
== END 2020-09-02 23:18 | disposition home or self-care (01) ==
LOC: ER 19:20
PROVIDERS: Physician Assistant
DX: R07.89 Other chest pain (principal); E78.5 Hyperlipidemia, unspecified; E11.9 Type 2 diabetes mellitus without complications; K21.9 Gastro-esophageal reflux disease without esophagitis; I11.0 Hypertensive heart disease with heart failure; I50.30 Unspecified diastolic (congestive) heart failure; Z86.711 Personal history of pulmonary embolism; Z88.6 Allergy status to analgesic agent; Z88.8 Allergy status to other drugs, medicaments and biological substances